=== PATIENT | female | born 1990 | race Native Hawaiian/Other Pacific Islander ===

== ENCOUNTER 2022-02-22 17:30 | Emergency (ER) | payer MEDICAID, SELFPAY ==
[2022-02-22 17:34] VITALS: BP 100/59; PULSE 130; RESP 20; TEMP 39.1; O2SAT 96; BMI 32.6
--- NOTE | 2022-02-22 18:10 | ED_ITS ---
HPI - General Adult General Chief complaint: Fever Stated complaint: High fever, 7 months Time Seen by Provider: 02/22/22 17:35 Source: patient Mode of arrival: ambulatory Limitations: no limitations History of Present Illness HPI narrative: 31-year-old female coming in today complaining of fever, cough, body aches. States that she started coughing about 3 weeks ago and then felt better however 1 week ago symptoms started to get worse and she developed a fever. Cough is sometimes productive. She has been hot and cold, having chills. Appetite is decreased. Patient is 7 months . Denies any abdominal pain or vaginal discharge. Baby is moving. She denies any diarrhea, increased urinary frequency or urgency. She denies any dysuria or blood in her stool or urine. She last took Tylenol approximately 6-7 hours ago. Patient states that she does have chronic back pain and she takes gabapentin and buprenorphine regularly. She denies any new medications. Related Data Home Medications Medication Instructions Recorded Confirmed buprenorphine HCl 450 mcg buccal mcg buccal 02/22/22 film (Belbuca) folic acid 1 mg tablet 02/22/22 gabapentin 300 mg capsule mg 02/22/22 guaifenesin 600 mg tablet, mg PO 02/22/22 extended release 12 hr (Mucinex) Allergies Allergy/AdvReac Type Severity Reaction Status Date / Time prednisone Allergy Intermediate Verified 02/22/22 17:42 Review of Systems Status of ROS: Reports: 10 or more systems reviewed and unremarkable except as noted in History and below [facility] Social History Smoking Status: Never smoker Do you use any of these nicotine containing products: None How often do you have a drink containing alcohol: never How often do you have six or more drinks on one occasion: Never AUDIT-C Alcohol total score: 0 Non-prescribed substance use: denies use Exam Narrative: Exam Narrative: Well-nourished well-developed, gravid patient in no acute distress. Alert and oriented. Answers questions appropriately. Mood and affect are appropriate. Patient speaks in full sentences without needing to catch their breath. She appears tired. She is slightly diaphoretic. HEENT: Normocephalic atraumatic. Pupils are equally round reactive to light. Extraocular muscles are intact. Conjunctivae are moist without any icterus noted. Moist mucous membranes. Posterior pharynx is normal. Neck is soft without any lymphadenopathy or thyromegaly. No masses are appreciated. Cardiovascular: Tachycardic, regular rhythm, S1 and S2 are present without any murmurs. Lungs: Clear to auscultation bilaterally no wheezes rhonchi or rales are appreciated. Patient takes deep breaths without any discomfort. Abdomen: Soft and nontender with normal bowel sounds. Gravid uterus. Extremities: Bilateral lower extremities are without edema. Normal DP and PT pulses. Skin: Well perfused without any obvious rashes. Const: Vital Signs, click to edit/add: Vital Signs - 24 hr 02/22/22 17:34 02/22/22 18:44 02/22/22 18:48 Temperature 102.4 F H Pulse Rate 121 H Pulse Rate [Pulse Oximeter] 130 H Respiratory Rate 20 Blood Pressure Blood Pressure [Ri ght Upper Arm] 100/59 L Pulse Oximetry 96 97 97 Oxygen Delivery Me thod 02/22/22 19:00 02/22/22 19:02 02/22/22 19:32 Temperature 98.2 F Pulse Rate 120 H 119 H Pulse Rate [Pulse Oximeter] 117 H Respiratory Rate 18 Blood Pressure 108/65 Blood Pressure [Ri ght Upper Arm] 101/59 L Pulse Oximetry 97 97 99 Oxygen Delivery Me thod Room Air Course Course Hospital Course: IV was established, normal saline was started and labs were drawn. Normal lactate, normal white cell count. Given her coughing fever we did go ahead and proceed with a chest x-ray. This was unremarkable. I did consult with Dr. Jeronimo Elizabeth before proceeding with this and she was in agreement that this was necessary. Her urinalysis was grossly positive for signs of infection. After receiving Tylenol and IV fluids patient's temperature came down to normal and her pulse went from the 130s to 1-teens and then down to 98 after her fluids were complete. Her blood pressure remained in the low 100s her last blood pressure is 1 weight over 58. And her oxygenation remained in the upper 90s. Patient did pull up her My Chart information and her last blood pressure at her clinic visit was 106/60, which is where it has been during her visit today. When her temperature came down she felt and looked significantly better, she was less achy, no longer diaphoretic and she certainly perked up quite a bit. Vital Signs Vital signs: Initial Vital Signs Temperature 102.4 F H 02/22/22 17:34 Temperature Source Oral 02/22/22 17:34 Pulse Rate 130 H 02/22/22 17:34 Respiratory Rate 20 02/22/22 17:34 Blood Pressure 100/59 L 02/22/22 17:34 Blood Pressure Mean 72 02/22/22 17:34 Blood Pressure Position Supine 02/22/22 17:34 Pulse Oximetry 96 02/22/22 17:34 Vital Signs Temperature 102.4 F H 02/22/22 17:34 Pulse Rate 130 H 02/22/22 17:34 Respiratory Rate 20 02/22/22 17:34 Blood Pressure 100/59 L 02/22/22 17:34 Pulse Oximetry 96 02/22/22 17:34 Temperature 98.2 F 02/22/22 19:32 Pulse Rate 117 H 02/22/22 19:32 Respiratory Rate 18 02/22/22 19:32 Blood Pressure 101/59 L 02/22/22 19:32 Pulse Oximetry 99 02/22/22 19:32 Oxygen Delivery Method 02/22/22 19:32 Medical Decision Making MDM Narrative Medical decision making narrative: 31-year-old female, 7 months presenting with a fever, UTI. I have no other source for this fever at this time. Will treat with Macrobid twice a day for a week. She will follow-up with her OBGYN this coming week. At this time I have no evidence of sepsis. Again, patient feeling significantly better after treatment. Patient was a little hyponatremic today as well, she is status post a L of normal saline. Recommend continued hydration and Tylenol as needed. Patient was agreeable and had no other questions. Medical Records Medical records reviewed: Yes I reviewed the patient's medical records Lab Data Lab results reviewed: Yes I reviewed the patient's lab results Labs: Lab Results 02/22/22 02/22/22 02/22/22 Range/Units 18:15 18:15 18:15 WBC 7.76 (4.50-11.00) K/uL RBC 3.60 L (4.00-5.20) m/uL Hgb 10.2 L (12.0-16.0) gm/dL Hct 31.1 L (33.0-51.0) % MCV 86 (80-100) fL MCH 28 (26-34) pg MCHC 33 (32-36) gm/dL RDW Coeff of Arian 14.3 (11.5-15.5) % Plt Count 334 (140-440) K/uL Neut % (Auto) 85.8 H (42.0-72.0) % Lymph % (Auto) 6.7 L (20-44) % [place] % (Auto) 7.0 (0.0-11.0) % Eos % (Auto) 0.1 (0.0-7.0) % Baso % (Auto) 0.1 (0.0-3.0) % Neut # (Auto) 6.70 (1.7-7.0) K/uL Lymph # (Auto) 0.50 L (0.90-2.90) K/uL [place] # (Auto) 0.50 (0.00-0.90) K/UL Eos # (Auto) 0.01 (0.00-0.50) K/uL Baso # (Auto) 0.01 (0.00-0.30) K/uL Abs Immat Gran (auto) 0.02 (0.00-0.30) K/uL Sodium 128 L (135-149) mmol/L Potassium 3.9 (3.6-5.1) mmol/L Chloride 101 (96-114) mmol/L Carbon Dioxide 19 L (20-32) mmol/L BUN 6 (5-24) mg/dL Creatinine 0.5 (0.5-1.5) mg/dL Estimated Creat Clear 126.57 Estimated GFR 127 ml/min Glucose 115 (60-115) mg/dL Lactate (0.5-1.9) mmol/L Calcium 8.3 L (8.4-10.6) mg/dL Total Bilirubin 0.4 (0.1-1.5) mg/dL Direct Bilirubin 0.0 (0.0-0.5) mg/dL AST 20 (12-35) U/L ALT 15 (4-35) U/L Alkaline Phosphatase 96 (40-150) U/L Troponin I < 0.01 L (0.01-0.04) ng/mL Total Protein 6.3 (6.0-8.3) g/dL Albumin 3.4 (3.3-5.0) g/dL Urine Color (Yellow) Urine Appearance (Clear) Urine pH (5.0-8.5) Ur Specific [place] (1.000-1.030) Urine Protein (Negative) Urine Glucose (UA) (Negative) Urine Ketones (Negative) Urine Blood (Negative) Urine Nitrite (Negative) Urine Bilirubin (Negative) Urine Urobilinogen (0.2-1.0) Ur Leukocyte Esterase (Negative) Urine RBC (0-2) Urine WBC (0-5) Ur Squamous Epith Cells (None-Few) Urine Bacteria (None) SARS-CoV-2 (PCR) (Negative) Influenza Type A (PCR) (Negative) Influenza Type B (PCR) (Negative) 02/22/22 02/22/22 02/22/22 Range/Units 18:15 18:15 19:42 WBC (4.50-11.00) K/uL RBC (4.00-5.20) m/uL Hgb (12.0-16.0) gm/dL Hct (33.0-51.0) % MCV (80-100) fL MCH (26-34) pg MCHC (32-36) gm/dL RDW Coeff of Arian (11.5-15.5) % Plt Count (140-440) K/uL Neut % (Auto) (42.0-72.0) % Lymph % (Auto) (20-44) % [place] % (Auto) (0.0-11.0) % Eos % (Auto) (0.0-7.0) % Baso % (Auto) (0.0-3.0) % Neut # (Auto) (1.7-7.0) K/uL Lymph # (Auto) (0.90-2.90) K/uL [place] # (Auto) (0.00-0.90) K/UL Eos # (Auto) (0.00-0.50) K/uL Baso # (Auto) (0.00-0.30) K/uL Abs Immat Gran (auto) (0.00-0.30) K/uL Sodium (135-149) mmol/L Potassium (3.6-5.1) mmol/L Chloride (96-114) mmol/L Carbon Dioxide (20-32) mmol/L BUN (5-24) mg/dL Creatinine (0.5-1.5) mg/dL Estimated Creat Clear Estimated GFR ml/min Glucose (60-115) mg/dL Lactate 1.4 (0.5-1.9) mmol/L Calcium (8.4-10.6) mg/dL Total Bilirubin (0.1-1.5) mg/dL Direct Bilirubin (0.0-0.5) mg/dL AST (12-35) U/L ALT (4-35) U/L Alkaline Phosphatase (40-150) U/L Troponin I (0.01-0.04) ng/mL Total Protein (6.0-8.3) g/dL Albumin (3.3-5.0) g/dL Urine Color Yellow (Yellow) Urine Appearance Clear (Clear) Urine pH 8.0 (5.0-8.5) Ur Specific [place] 1.015 (1.000-1.030) Urine Protein Trace A (Negative) Urine Glucose (UA) Negative (Negative) Urine Ketones Negative (Negative) Urine Blood Trace-intact A (Negative) Urine Nitrite Negative (Negative) Urine Bilirubin Negative (Negative) Urine Urobilinogen 0.2 (0.2-1.0) Ur Leukocyte Esterase 3+ A (Negative) Urine RBC 0-2 (0-2) Urine WBC 5-10 A (0-5) Ur Squamous Epith Cells Few (None-Few) Urine Bacteria Few A (None) SARS-CoV-2 (PCR) Negative SARS-CoV-2 (Negative) Influenza Type A (PCR) Negative PCR FLU A (Negative) Influenza Type B (PCR) Negative PCR FLU B (Negative) Imaging Data Chest x-ray: Attestation: I have reviewed the pertinent imaging results. Radiologist's impression: TECHNIQUE: Chest 2 views. COMPARISON: None FINDINGS: The heart is normal in size. The pulmonary vasculature is within normal limits. The lungs are clear without focal consolidation, pleural effusion or pneumothorax. The bones are unremarkable. IMPRESSION: No acute process. ECG Data Attestation: I personally reviewed and interpreted this ECG as follows: (Initial EKG showed sinus tachycardia with a pulse of 124.) Discharge Plan Discharge Clinical Impression: UTI (urinary tract infection), Fever Patient Disposition: Home, Self-Care Condition: Improved Additional Instructions: Make sure to stay well hydrated and get plenty of rest. Start your antibiotic today. Follow-up with your OBGYN this week. Medications sent to [facility]. Prescriptions: No Action gabapentin 300 mg capsule Label Comments: TAKE 2 CAPSULES BY MOUTH THREE TIMES DAILY folic acid 1 mg tablet Label Comments: TAKE 4 TABLETS BY MOUTH EVERY DAY guaifenesin [Mucinex] 600 mg tablet extended release 12hr PO buprenorphine HCl [Belbuca] 450 mcg film BUCCAL Follow Up/Referrals: Provider,Not a Local [Primary Care Provider] - Stand Alone Forms: [facility] Info Instructions
[2022-02-22 18:19] LABS: Lactate* 1.4 mmol/L (0.5-1.9)
[2022-02-22 18:20] LABS: Basophils Absolute Auto 0.01 K/uL (0.00-0.30); Basophils Percent Auto 0.1 % (0.0-3.0); Eosinophils Absolute Auto 0.01 K/uL (0.00-0.50); Eosinophils Percent Auto 0.1 % (0.0-7.0); Hematocrit 31.1 % (33.0-51.0); Hemoglobin* 10.2 gm/dL (12.0-16.0); Immature Granulocytes Abs Auto 0.02 K/uL (0.00-0.30); Lymphocytes Percent Auto 6.7 % (20-44); Mean Corpuscular HGB Conc 33 gm/dL (32-36); Mean Corpuscular Hemoglobin 28 pg (26-34); Mean Corpuscular Volume 86 fL (80-100); Neutrophils Percent Auto 85.8 % (42.0-72.0); Platelet Count* 334 K/uL (140-440); RDW Coefficient of Variation % 14.3 % (11.5-15.5); White Blood Count* 7.76 K/uL (4.50-11.00)
[2022-02-22 18:23] LABS: Slide Review Reflex No
[2022-02-22] MEDS: ACETAMINOPHEN 500 MG TABLET 1000 MG PO (18:23)
[2022-02-22] MEDS: 0.9 % SODIUM CHLORIDE 1000 ml 1,000 ML 500 ML IV (18:24)
[2022-02-22 18:36] LABS: Albumin* 3.4 g/dL (3.3-5.0)
[2022-02-22 18:37] LABS: Chloride* 101 mmol/L (96-114); Potassium* 3.9 mmol/L (3.6-5.1); Sodium* 128 mmol/L (135-149)
[2022-02-22 18:39] LABS: Alanine Aminotransferase* 15 U/L (4-35); Alkaline Phosphatase* 96 U/L (40-150); Aspartate Amino Transferase* 20 U/L (12-35); Bilirubin Total* 0.4 mg/dL (0.1-1.5); Creatinine* 0.5 mg/dL (0.5-1.5); Est. Creatinine Clearance* 126.57; Estimated Glomerular Filt Rate 127 ml/min; Total Protein* 6.3 g/dL (6.0-8.3)
[2022-02-22 18:40] LABS: Blood Urea Nitrogen* 6 mg/dL (5-24); Calcium* 8.3 mg/dL (8.4-10.6); Carbon Dioxide* 19 mmol/L (20-32); Glucose* 115 mg/dL (60-115)
[2022-02-22 18:44] VITALS: O2SAT 97
[2022-02-22 18:48] VITALS: PULSE 121; O2SAT 97
[2022-02-22 18:51] LABS: Troponin I* < 0.01 ng/mL (0.01-0.04)
[2022-02-22 18:58] LABS: PCR FLU A Negative PCR FLU A (Negative); PCR FLU B Negative PCR FLU B (Negative)
[2022-02-22 19:00] VITALS: PULSE 120; O2SAT 97
[2022-02-22 19:02] VITALS: BP 108/65; PULSE 119; O2SAT 97
[2022-02-22 19:03] LABS: SARS PCR* Negative SARS-CoV-2 (Negative)
[2022-02-22 19:32] VITALS: BP 101/59; PULSE 117; RESP 18; TEMP 36.8; O2SAT 99
--- NOTE | 2022-02-22 19:45 | CRLHL7_ITS ---
For Patients: As a result of the Cures Act, medical imaging exams and procedure reports are released immediately into your electronic medical record. You may view this report before your referring provider. If you have questions, please contact your health care provider. INDICATION: Shortness of breath, fever, body sweats TECHNIQUE: Chest 2 views. COMPARISON: None FINDINGS: The heart is normal in size. The pulmonary vasculature is within normal limits. The lungs are clear without focal consolidation, pleural effusion or pneumothorax. The bones are unremarkable. IMPRESSION: No acute process. Dictated by Britney Steiner MD @ 02/22/2022 8:21:59 PM Dictated by: Britney Steiner MD @ 02/22/2022 20:23:25 (Electronically Signed)
[2022-02-22 19:46] LABS: Appearance Urine Clear (Clear); Bilirubin Urine Negative (Negative); Blood Urine Trace-intact (Negative); Color Urine Yellow (Yellow); Glucose Urine Negative (Negative); Ketones Urine Negative (Negative); Leukocyte Esterase Urine 3+ (Negative); Nitrite Urine Negative (Negative); Protein Urine Trace (Negative); Specific Gravity Urine 1.015 (1.000-1.030); Urobilinogen Urine 0.2 (0.2-1.0)
[2022-02-22 20:04] LABS: Bacteria Urine Few; RBC Urine 0-2 (0-2); Squamous Epithelial Cell Urine Few (None-Few)
== END 2022-02-22 20:57 | disposition home or self-care (01) ==
PROVIDERS: Emergency Provider Family Medicine
DX: O23.43 Unspecified infection of urinary tract in pregnancy, third trimester (principal); N39.0 Urinary tract infection, site not specified; Z3A.00 Weeks of gestation of pregnancy not specified
CPT/HCPCS: 36415; 71046; 80048; 80076; 81001; 83605; 84484; 85025; 87086; 87186; 87631; 93005; 94761; 96360; 96361; 99284; A9270; J7030

== ENCOUNTER 2022-12-22 16:35 | Emergency (ER) | payer MEDICAID, SELFPAY ==
[2022-12-22] VITALS (7 sets, daily range): BP systolic 117–124; BP diastolic 77–87; PULSE 79–84; RESP 20; TEMP 37.1; O2SAT 95–98; BMI 32.9
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
--- NOTE | 2022-12-22 17:59 | CRLHL7_ITS ---
For Patients: As a result of the Century Cures Act, medical imaging exams and procedure reports are released immediately into your electronic medical record. You may view this report before your referring provider. If you have questions, please contact your health care provider. INDICATION: Chest pain TECHNIQUE: Chest 2 views. COMPARISON: February 22, 2022 FINDINGS: Cardiovascular and mediastinum: Heart size and vasculature are normal in caliber and appearance. Mediastinum is within normal limits. Lungs and pleural spaces: Lungs are clear. No sign of infiltrate or mass. No sign of pleural effusion. No pneumothorax. Bones and soft tissues: No significant findings. IMPRESSION: No sign of acute disease. Dictated by Noris Treviño MD @ 12/22/2022 6:49:55 PM (Electronically Signed)
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
[2022-12-22] MEDS: LORazepam 1 MG TABLET PO (18:04)
[2022-12-22] MEDS: ASPIRIN 81 MG TAB.CHEW 162 MG PO (18:04)
[2022-12-22 18:41] LABS: Basophils Absolute Auto 0.01 K/uL (0.00-0.30); Basophils Percent Auto 0.1 % (0.0-3.0); Eosinophils Absolute Auto 0.07 K/uL (0.00-0.50); Hematocrit 38.1 % (33.0-51.0); Hemoglobin* 12.1 gm/dL (12.0-16.0); Lymphocytes Absolute Auto 2.64 K/uL (0.90-2.90); Lymphocytes Percent Auto 37.8 % (20-44); Mean Corpuscular HGB Conc 32 gm/dL (32-36); Mean Corpuscular Hemoglobin 28 pg (26-34); Mean Corpuscular Volume 87 fL (80-100); Monocytes Percent Auto 5.9 % (0.0-11.0); Neutrophils Absolute Auto 3.85 K/uL (1.7-7.0); Neutrophils Percent Auto 55.2 % (42.0-72.0); Platelet Count* 371 K/uL (140-440); RDW Coefficient of Variation % 14.4 % (11.5-15.5); White Blood Count* 6.98 K/uL (4.50-11.00)
[2022-12-22 18:49] LABS: Slide Review Reflex No
[2022-12-22 18:58] LABS: Chloride* 103 mmol/L (96-114); Sodium* 137 mmol/L (135-149)
[2022-12-22 18:59] LABS: D Dimer Quantitative* 0.29 ug/ml (0.00-0.50); Potassium* 3.9 mmol/L (3.6-5.1)
[2022-12-22 19:01] LABS: Creatinine* 0.6 mg/dL (0.5-1.5); Est. Creatinine Clearance* 104.49; Estimated Glomerular Filt Rate 121 ml/min
[2022-12-22 19:02] LABS: Anion Gap 9 mEq/L (7-15); Blood Urea Nitrogen* 14 mg/dL (5-24); Calcium* 8.9 mg/dL (8.4-10.6); Carbon Dioxide* 25 mmol/L (20-32); Glucose* 89 mg/dL (60-115)
[2022-12-22 19:16] LABS: Troponin I* < 0.01 ng/mL (0.01-0.04)
== END 2022-12-22 20:30 | disposition home or self-care (01) ==
PROVIDERS: Emergency Provider Emergency Medicine
DX: R07.9 Chest pain, unspecified (principal); Z91.410 Personal history of adult physical and sexual abuse
CPT/HCPCS: 36415; 71046; 80048; 81001; 84484; 85025; 85379; 93005; 99284; 99285; A9270

== ENCOUNTER 2024-01-26 17:35 | Emergency (ER) | payer MEDICAID, SELFPAY ==
[2024-01-26 17:41] VITALS: BP 112/72; PULSE 109; RESP 18; TEMP 36.4; O2SAT 97
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
--- NOTE | 2024-01-26 18:02 | CRLHL7_ITS ---
For Patients: As a result of the Century Cures Act, medical imaging exams and procedure reports are released immediately into your electronic medical record. You may view this report before your referring provider. If you have questions, please contact your health care provider. INDICATION: Lingering COVID-19 symptoms. 22 weeks , Persistent cough TECHNIQUE: Chest radiograph 1 view COMPARISON: None FINDINGS: The sensitivity and specificity of the exam are moderately limited by the patient`s body habitus. Mediastinum: The mediastinum is normal in appearance. The heart silhouette is normal in size and morphology. Lung: Both lungs are unremarkable in appearance. No sign of pleural effusion seen. No pneumothorax is identified. Bone and Soft tissue: Unremarkable for age. IMPRESSION: 1. No acute cardiopulmonary disease is seen. Dictated by: Rakesh Paez MD @ 01/26/2024 19:47:54 (Electronically Signed)
== END 2024-01-26 18:33 | disposition home or self-care (01) ==
PROVIDERS: Emergency Provider Emergency Medicine
DX: R05.9 Cough, unspecified (principal)
CPT/HCPCS: 71045; 99283; 99284

== ENCOUNTER 2024-07-24 14:15 | Outpatient (CLI) | payer MEDICAID, SELFPAY | END 2024-07-24 14:16 | disposition home or self-care (01) | PROVIDERS: Visit Provider Family Medicine | DX: R53.83 Other fatigue (principal); Z13.0 Encounter for screening for diseases of the blood and blood-forming organs and certain disorders involving the immune mechanism | CPT/HCPCS: 80048; 82728; 84443; 85025 ==